=== PATIENT | male | born 1970 | race Caucasian/White ===

== ENCOUNTER 2017-07-24 06:30 | Day surgery (SDC) | payer BC ==
[~2017-07-24] VITALS: Ht 177.8 cm; Wt 99.8 kg
[2017-07-24] MEDS ORDERED: NS 1000 ML BAG IV ONE (07:30)
[2017-07-24] MEDS ORDERED: DEXAMETHASONE SOD PHOSPHATE 4 MG/ML VIAL IVP ONE (07:30)
[2017-07-24] MEDS ORDERED: LIDOCAINE/EPI 1% 1:100000 20 ML VIAL INJ ONE (07:30)
[2017-07-24] MEDS ORDERED: LEVOFLOXACIN 500 MG/D5W 100 ML PIGGYBACK IV ONE (07:30)
[2017-07-24] MEDS ORDERED: ROCURONIUM BROMIDE 10 MG/ML (ZEMURON) IV ONE (07:30)
[2017-07-24] MEDS ORDERED: EPINEPHrine 1 MG/ML AMP IV ONE (07:30)
[2017-07-24] MEDS ORDERED: LR 1,000 ML IV.SOLN IV ONE (07:30)
[2017-07-24] MEDS ORDERED: fentaNYL CITRATE 250 MCG/5 ML AMP IV ONE (07:30)
[2017-07-24] MEDS ORDERED: PROPOFOL 200MG/ 20ML VIAL (DIPRIVAN) IV ONE (07:30)
[2017-07-24] MEDS ORDERED: NS IRRIG SOLN 1000 ML IR ONE (07:30)
[2017-07-24] MEDS ORDERED: OXYMETAZOLINE HCL 0.05% NASAL SPRAY NS ONE (07:30)
[2017-07-24] MEDS ORDERED: ONDANSETRON HCL 4 MG/2 ML VIAL IVP ONE (07:30)
[2017-07-24] MEDS ORDERED: MIDAZOLAM HCL 5 MG/5 ML VIAL IVP ONE (07:30)
[2017-07-24] MEDS ORDERED: SEVOFLURANE 15 MIN GAS INH ONE (07:30)
[2017-07-24] MEDS ORDERED: LR 1,000 ML IV SCH (08:59)
[2017-07-24] MEDS ORDERED: MORPHINE 4 MG/ML INJ. SYRINGE IVP PRN ×3 (09:00)
[2017-07-24] MEDS ORDERED: METOCLOPRAMIDE HCL 10 MG/2 ML VIAL IVP PRN (09:00)
[2017-07-24] MEDS ORDERED: MORPHINE 4 MG/ML INJ. SYRINGE ONE (09:47)
[2017-07-24 11:23] VITALS: BP_SYST 132
[2017-07-24] MEDS ORDERED: HYDROcodone/ACETAMIN 5-325 MG TAB (NORCO/ VICODIN) PO ONE (11:30)
[2017-07-24] MEDS ORDERED: HYDROcodone/ACETAMIN 5-325 MG TAB (NORCO/ VICODIN) ONE (11:32)
== END 2017-07-24 12:10 | disposition home or self-care (01) ==
LOC: SMU 06:30 → SDS 06:30
PROVIDERS: ATTEND Otolaryngology
DX: J32.9 Chronic sinusitis, unspecified (principal); K21.9 Gastro-esophageal reflux disease without esophagitis; Z88.8 Allergy status to other drugs, medicaments and biological substances; Z87.891 Personal history of nicotine dependence; Z79.899 Other long term (current) drug therapy; Z98.890 Other specified postprocedural states
CPT/HCPCS: 31255; 31267; 31296; 31297; 87070; 87075; 87101; 87186; 88305; 88311; C1726; J0171; J1100; J1956; J2250; J2270; J2405; J2704; J3010; J7030; J7120

== ENCOUNTER 2018-08-14 07:03 | Emergency (ER) | payer BC ==
[~2018-08-14] VITALS: Ht 177.8 cm; Wt 90.7 kg
[2018-08-14 07:03] VITALS: BP_SYST 130
[2018-08-14] MEDS ORDERED: NACL 0.9% 1,000 ML IV ONE (07:28)
[2018-08-14] MEDS ORDERED: ONDANSETRON HCL 4 MG/2 ML VIAL IVP ONE (07:30)
[2018-08-14] MEDS ORDERED: MORPHINE 4 MG/ML INJ. SYRINGE IVP ONE (07:30)
[2018-08-14 07:50] LABS: HEMATOCRIT 44.5 % (36-54); HEMOGLOBIN 14.9 g/dL (14.0-18.0); MEAN CORPUSCULAR VOLUME 87 fL (79.0-98.0); WHITE BLOOD COUNT (AUTO) 10.2 K/uL (4.8-10.8)
[2018-08-14 07:51] LABS: BASOPHILS % (AUTO) 0.4 % (0.0-2.0); EOSINOPHILS # (AUTO) 0.1 K/uL (0.0-0.4); EOSINOPHILS % (AUTO) 0.7 % (0.0-4.0); LYMPHOCYTES # (AUTO) 2.1 K/uL (1.0-5.5); LYMPHOCYTES % (AUTO) 20.9 % (20.5-51.5); MEAN CORPUSCULAR HEMOGLOBIN 29 pg (27-31); MEAN CORPUSCULAR HGB CONC 34 % (32-36); MONOCYTES # (AUTO) 0.6 K/uL (0.0-1.0); MONOCYTES % (AUTO) 5.7 % (1.7-9.3); NEUTROPHILS # (AUTO) 7.4 K/uL (1.8-7.7); NEUTROPHILS % (AUTO) 72.3 % (40.0-70.0); PLATELET COUNT (AUTO) 206 K/uL (130-430)
[2018-08-14 07:59] LABS: CALCIUM 8.6 mg/dL (8.4-11.0); CREATININE 0.86 mg/dL (0.55-1.30); POTASSIUM 4.2 mmol/L (3.5-5.1)
[2018-08-14 08:04] LABS: ALBUMIN 3.7 g/dL (3.4-4.8); TOTAL BILIRUBIN 0.8 mg/dL (0.0-1.0)
[2018-08-14 08:18] LABS: BILIRUBIN,URINE NEGATIVE (NEGATIVE); BLOOD, URINE NEGATIVE (NEGATIVE); CLARITY/URINE CLEAR (CLEAR); COLOR,URINE YELLOW (YELLOW); GLUCOSE,URINE NEGATIVE (NEGATIVE); KETONES,URINE NEGATIVE (NEGATIVE); LEUKOCYTE ESTERASE ,URINE NEGATIVE (NEGATIVE); NITRITE, URINE NEGATIVE (NEGATIVE); PH,URINE 6.5 (5.0-8.0); PROTEIN URINE NEGATIVE (NEGATIVE); UROBILINOGEN,URINE 0.2 (0.2-1.0)
[2018-08-14 09:19] VITALS: BP_SYST 129
== END 2018-08-14 09:19 | disposition home or self-care (01) ==
LOC: SED 07:03
DX: K80.20 Calculus of gallbladder without cholecystitis without obstruction (principal); J32.0 Chronic maxillary sinusitis; M54.2 Cervicalgia; K21.9 Gastro-esophageal reflux disease without esophagitis; Z88.8 Allergy status to other drugs, medicaments and biological substances
CPT/HCPCS: 36415; 70490; 74176; 80053; 81003; 85025; 96374; 96375; 99284; J2270; J2405; J7030

== ENCOUNTER 2019-04-22 06:55 | Day surgery (SDC) | payer BC ==
[~2019-04-22] VITALS: Ht 177.8 cm; Wt 90.7 kg
[2019-04-22] MEDS ORDERED: ROCURONIUM BROMIDE 10 MG/ML (ZEMURON) IV ONE (08:51)
[2019-04-22] MEDS ORDERED: MIDAZOLAM HCL 5 MG/5 ML VIAL IVP ONE (08:51)
[2019-04-22] MEDS ORDERED: LEVOFLOXACIN 750 mg/D5W 150 mL IVPB IV ONE (08:51)
[2019-04-22] MEDS ORDERED: LR 1,000 ML IV.SOLN IV ONE (08:51)
[2019-04-22] MEDS ORDERED: PROPOFOL 200MG/ 20ML VIAL (DIPRIVAN) IV ONE (08:51)
[2019-04-22] MEDS ORDERED: WATER FOR IRRIGATION,STERILE 1,000 ML IRRIG.SOLN IR ONE (08:51)
[2019-04-22] MEDS ORDERED: NS IRRIG SOLN 1000 ML IR ONE (08:51)
[2019-04-22] MEDS ORDERED: OXYMETAZOLINE HCL 0.05% NASAL SPRAY NS ONE (08:51)
[2019-04-22] MEDS ORDERED: SEVOFLURANE 15 MIN GAS INH ONE (08:51)
[2019-04-22] MEDS ORDERED: fentaNYL CITRATE/PF 100 MCG/2 ML AMP IVP ONE (08:51)
[2019-04-22] MEDS ORDERED: fentaNYL CITRATE/PF 100 MCG/2 ML AMP IVP PRN ×2 (09:45)
[2019-04-22] MEDS ORDERED: ONDANSETRON HCL 4 MG/2 ML VIAL IVP PRN (09:45)
[2019-04-22] MEDS ORDERED: fentaNYL CITRATE/PF 100 MCG/2 ML AMP ONE (11:19)
[2019-04-22] MEDS ORDERED: ONDANSETRON HCL 4 MG/2 ML VIAL ONE (12:15)
[2019-04-22 12:45] VITALS: BP_SYST 131
== END 2019-04-22 13:25 | disposition home or self-care (01) ==
LOC: SDS 06:55 → SMU 06:55 → SDS 13:25
PROVIDERS: ATTEND Otolaryngology
DX: J32.4 Chronic pansinusitis (principal); E66.3 Overweight; J30.9 Allergic rhinitis, unspecified; R09.82 Postnasal drip; Z88.8 Allergy status to other drugs, medicaments and biological substances; Z87.891 Personal history of nicotine dependence; Z79.899 Other long term (current) drug therapy
CPT/HCPCS: 30140; 31255; 31267; 31298; 87070; 87075; 87101; 87116; 87186; 88108; 88305; C1726; J1956; J2250; J2405; J2704; J3010; J7120